=== PATIENT | female | born 1960 | race Caucasian/White ===

== ENCOUNTER 2019-12-21 12:48 | Emergency (ER) | payer SELFPAY ==
[2019-12-21 13:10] VITALS: BP 160/100; PULSE 88; RESP 16; TEMP 36.9; O2SAT 96
--- NOTE | 2019-12-21 13:31 | ED.EXTPRO ---
HPI - Extremity Problem General Chief complaint: Extremity Problem,Nontraumatic Stated complaint: swelling both legs Time Seen by Provider: 12/21/19 13:21 Source: patient and RN notes reviewed Mode of arrival: ambulatory Limitations: no limitations History of Present Illness HPI Narrative: Patient presents today complaining of bilateral leg swelling for the past 3 weeks. Reports it started out in the bilateral feet, and has spread to the thighs and low back. She also reports a cough and some shortness of breath. Patient has history of diabetes, hypertension, and has not had medical insurance for the last year, so she has not been taking any medications. States she uses grapefruit juice, avocados, and baked potatoes as homeopathic remedies. Denies history of congestive heart failure. MD Complaint: extremity swelling and other (Shortness of breath) Related Data Home Medications Medication Instructions Recorded Confirmed No Home Medications 12/21/19 12/21/19 Allergies Allergy/AdvReac Type Severity Reaction Status Date / Time Bleach (Sodium Hypochlorite) Allergy Itching Verified 12/21/19 13:18 Review of Systems Review of Systems: Narrative: CONSTITUTIONAL: Denies body aches, fever, chills, or sweats. EYES: Denies visual changes, redness, or discharge. ENT: Denies rhinorrhea, congestion, sore throat, or otalgia. CARDIOVASCULAR: Denies chest pain, palpitations, or edema. RESPIRATORY: Shortness of breath, occasional cough GASTROINTESTINAL: Denies abdominal pain, nausea, vomiting, or diarrhea. GENITOURINARY: Denies dysuria or hematuria. SKIN: Denies rash, itching, or wounds. MUSCULOSKELETAL: Denies back pain, joint pain, or myalgia. Bilateral leg edema NEUROLOGIC: Denies headache, numbness, tingling, or weakness. PSYCH: Denies depression or anxiety. [facility] Past Medical History Medical History (Updated 12/21/19 @ 13:41 by Sandy Giron, SILVANA, BC) Diabetes History of benign ovarian tumor History of pancreatitis Hypercholesterolemia Hypertension Surgical History Surgical History (Updated 12/21/19 @ 13:41 by Sandy Giron, SILVANA, BC) H/O: hysterectomy Social History Social History Gender identity (if verbalized by the patient): Female Comments At time of signature, I have reviewed and agree with nursing past medical, surgical, social and family history unless otherwise noted. Please see nursing chart for further information. There is no relevant family history pertinent to the presenting complaint Exam Narrative: Exam Narrative: GENERAL: Chronically ill-appearing, well-nourished, and in no acute distress. HEAD: Normocephalic, atraumatic. EYES: EOMI. No redness or drainage. Conjunctivae normal. ENT: Mucous membranes pink and moist. NECK: Normal AROM. Supple. No lymphadenopathy. CHEST: No respiratory distress. Crackles in the bilateral bases, diminished in the bilateral bases. HEART: Regular rate and rhythm. No murmur appreciated. Normal peripheral pulses. ABDOMEN: Soft, nontender, nondistended, normal active bowel sounds. EXTREMITIES: 3+ pitting edema that extends from bilateral feet to the bilateral thighs and buttocks. No discoloration of the legs or feet are noted. Sensation intact. Capillary refill normal. Difficult to palpate pedal pulses due to edema. SKIN: Warm, dry, no rash. Capillary refill normal. Normal skin turgor. NEURO: No focal deficits. Alert and oriented x3. Gait steady. PSYCH: Normal affect. No signs of depression or anxiety. Course Vital Signs Vital signs: Vital Signs Temperature 98.4 F 12/21/19 13:10 Pulse Rate 88 12/21/19 13:10 Respiratory Rate 16 12/21/19 13:10 Blood Pressure 160/100 H 12/21/19 13:10 Pulse Oximetry 96 12/21/19 13:10 Temperature 98.4 F 12/21/19 13:10 Pulse Rate 88 12/21/19 13:10 Respiratory Rate 16 12/21/19 13:10 Blood Pressure 160/100 H 12/21/19 13:10 Pulse Oximetry 96 12/21/19 13:10 Transfer Transfere
--- NOTE | 2019-12-21 13:58 | PC.NURSE ---
Chart faxed and confirmation received
== END 2019-12-21 13:35 | disposition short-term general hospital (02) ==
PROVIDERS: Emergency Provider Nurse Practitioner
DX: R60.0 Localized edema (principal); R06.02 Shortness of breath; E11.9 Type 2 diabetes mellitus without complications; E78.00 Pure hypercholesterolemia, unspecified; I10 Essential (primary) hypertension
CPT/HCPCS: 99202; G0463